=== PATIENT | male | born 1945 | race Caucasian/White ===

== ENCOUNTER 2020-09-08 06:33 | Day surgery (SDC) | payer MEDICARE, SELFPAY ==
[2020-09-05 13:07] VITALS: BMI 30.9
[2020-09-08 06:44] VITALS: BP 160/75; PULSE 66; RESP 15; TEMP 36.2; O2SAT 97; BMI 29.5
[2020-09-08 06:56] LABS: Glucose, Whole Blood 172 mg/dL (60-115)
[2020-09-08] MEDS: Lactated Ringers 1,000 ML 50 ML IV (07:05)
--- NOTE | 2020-09-08 07:17 | HO.ANESPROP2 ---
[facility] Past Medical History Medical History Arthritis Gout HTN (hypertension) Hyperlipidemia Hypertriglyceridemia Psoriasis Type II diabetes mellitus Surgical History Surgical History History of bilateral carpal tunnel release History of nasal surgery History of neck surgery Hx of colonoscopy Social History Social History Are you a primary neurocritical care physician to a significant other at home: No Do you presently have visiting nurse or other home services: No Smoking Status: Former smoker Use of substances other than those prescribed or required for medical reasons: No Advance Directives: No Advance Directives Information Provided: No Advance Directives on File: No Recently lost weight without trying: No Meds Allergies Allergy/AdvReac Type Severity Reaction Status Date / Time lisinopril [LISINOPRIL] Allergy Severe ANGIOEDEMA Verified 09/08/20 07:03 Active Medications: Current Medications Generic Name Dose Route Start Last Admin Trade Name Freq PRN Reason Stop Dose Admin Lactated Ringer's 1,000 mls @ 50 mls/hr 09/07/20 08:15 09/08/20 07:05 Lr IV 50 mls/hr .Q20H ROSA Administration Home Medications Medication Instructions Recorded Confirmed Last Taken Type allopurinol 1 tab PO DAILY 09/05/20 09/05/20 Unknown History aspirin [Aspir-81] 81 mg PO DAILY 09/05/20 09/05/20 Unknown History atenolol 1 tab PO BID 09/05/20 09/08/20 09/08/20 History 50 mg gemfibrozil 1 tab PO BID 09/05/20 09/05/20 Unknown History glipizide 1 tab PO BID 09/05/20 09/05/20 Unknown History metformin 1 tab PO BID 09/05/20 09/05/20 Unknown History multivitamin 1 tab PO DAILY 09/05/20 09/05/20 Unknown History pravastatin 1 tab PO BEDTIME 09/05/20 09/05/20 Unknown History Exam Exam Date and Time: September 08, 2020 0717 Height,Weight and Vital Signs: Height 5 ft 6 in Weight 83.007 kg Last Vital Signs Temp 97.1 F 09/08/20 06:44 Pulse 66 09/08/20 06:44 Resp 15 09/08/20 06:44 BP 160/75 H 09/08/20 06:44 Pulse Ox 97 09/08/20 06:44 Pertinent Lab Results Pertinent Lab Results: Laboratory Tests 09/08/20 06:49 POC Glucose 172 H Airway Mallampati Class: II TM Dist: >3cm Neck ROM: Full Loose/Missing/Broken Teeth: No Heart: RRR Lungs: CTA Assessment and Plan Assessment Anesthesia Assessment: Anesthesia Plan Discussed and Chart Reviewed Final Anesthetic Review NPO: Yes ASA Class: II Final Preanesthetic Review: Meds/Allgs Chart Reviewed, Consent Obtained/Reviewed and Anes Risks/Benef Reviewed Patient Risk: Low Procedure Risk: Low Anesthetic Plan Anesthetic Plan: MAC: Disposition: Standard PACU
--- NOTE | 2020-09-08 07:26 | MHC.SHP ---
Pre-Procedural Eval Section A The patient is an INPATIENT: No Changes since office visit: No Cold of Flu in the past 2 weeks, No New Medical Problems, No Changes in Medication and No Patient answered all questions The History & Physical has been completed within 30 days and I have reviewed it.: Yes Section B Chief Complaint: screening Allergies: Allergies Allergy/AdvReac Type Severity Reaction Status Date / Time lisinopril [LISINOPRIL] Allergy Severe ANGIOEDEMA Verified 09/08/20 07:03 Plan I have reviewed the history and physical and performed a pertinent physical examination on my patient. No changes have occurred unless specified.
[2020-09-08 08:10] VITALS: BP 135/56; PULSE 59; RESP 16; TEMP 36.6; O2SAT 99
--- NOTE | 2020-09-08 08:10 | PM.OP ---
Brief Operative Note Date of Service: 09/08/20 Pre-op diagnosis: screening Post-op diagnosis: same (colon polyp) Procedure: colonsocopy Surgeon: Nicholas Blankenship Estimated blood loss (mL): 2 Pathology: other (polyp ) Condition: stable Disposition: PACU
[2020-09-08 08:25] VITALS: BP 121/66; PULSE 68; RESP 16; O2SAT 96
--- NOTE | 2020-09-08 13:30 | OP_ITS ---
SURGEON: Nicholas Blankenship MD INDICATIONS: Colon cancer screening. PREOPERATIVE DIAGNOSIS: POSTOPERATIVE DIAGNOSIS: PROCEDURE PERFORMED: Colonoscopy to the cecum with biopsy. ESTIMATED BLOOD LOSS: COMPLICATIONS: ANESTHESIA: ASSISTANTS: SPECIMENS: MEDICATIONS: Monitored anesthesia care. DESCRIPTION OF PROCEDURE: History and physical performed. The risks and benefits of the procedure were explained to the patient. Informed consent was obtained. The patient was placed in the left lateral decubitus position. A digital rectal exam was performed and was found to be normal. The Olympus pediatric video colonoscope was introduced into the rectum and advanced to the cecum without difficulty. The cecum was identified by transillumination, palpation, and identification of the ileocecal valve. Examination was performed and the scope was removed. He tolerated the procedure well and was taken to recovery area in stable condition. FINDINGS: The terminal ileum was not examined. The visualized colonic mucosa was normal. The quality of the prep was fair with some retained stool and liquid stool. This was washed and suctioned. There was extensive diverticulosis throughout the colon. At the hepatic flexure, was a less than 5 mm polyp, which was removed with biopsy forceps. Retroflexed examination was normal. IMPRESSION: Colon polyp. RECOMMENDATION: Follow up the biopsy results. MD JAVAD Ramachandran/JORDYN / [id number]
== END 2020-09-08 09:24 | disposition home or self-care (01) ==
PROVIDERS: PCP Internal Medicine; Visit Provider Internal Medicine Gastroenterology
PROC: 0DJD8ZZ Inspection of Lower Intestinal Tract, Via Natural or Artificial Opening Endoscopic (ICD-10-PCS; CPT 45378; principal; 2020-09-08 07:30)
DX: Z12.11 Encounter for screening for malignant neoplasm of colon (principal); D12.3 Benign neoplasm of transverse colon; K57.30 Diverticulosis of large intestine without perforation or abscess without bleeding; I10 Essential (primary) hypertension; E11.9 Type 2 diabetes mellitus without complications; Z79.84 Long term (current) use of oral hypoglycemic drugs; Z79.899 Other long term (current) drug therapy; Z79.82 Long term (current) use of aspirin
CPT/HCPCS: 45380; 82947; 88305

== ENCOUNTER 2020-09-11 09:01 | Outpatient (REF) | payer MEDICARE, SELFPAY ==
[2020-09-11 11:19] LABS: Glucose Urine UA NEG (NEG); Leukocyte Esterase Urine NEG (NEG); Nitrite Urine NEG (NEG); PH 5.5 (5.0-8.0); Urine Blood 1+ (NEG); Urine Ketones NEG (NEG); Urine Protein 1+ MG/DL (NEG-TRACE)
[2020-09-11 11:20] LABS: Appearance Urine CLEAR; Color Urine YELLOW
[2020-09-11 11:23] LABS: MANUAL DIFF FLAG NO
[2020-09-11 11:36] LABS: Estimated Average Glucose 134 mg/dL; Hemoglobin A1c % 6.3 %
[2020-09-11 11:46] LABS: Basophils Percent Auto 0.2 % (0-2); Eosinophils Absolute Auto 0.1 X10*3/uL (0.0-0.4); Eosinophils Percent Auto 1.2 % (0-4); Imm Gran Abs Auto 0.04 X10*3/uL (0.00-0.03); Imm Gran Pct Auto 0.8 % (0.0-0.4); Lymphocytes Percent Auto 19.6 % (20-40); Mean Corpuscular HGB Conc 33.3 g/dl (31.0-36.0); Mean Corpuscular Hemoglobin 30.6 pg (27.0-33.0); Mean Corpuscular Volume 91.7 fL (80-98); Mean Platelet Volume 10.6 fL (9.4-12.4); Monocytes Absolute Auto 0.5 X10*3/uL (0.1-1.2); Monocytes Percent Auto 10.4 % (2-11); Neutrophils Absolute Auto 3.3 X10*3/uL (2.0-8.3); Neutrophils Percent Auto 67.8 % (45-73); Platelet Count 168 X10*3/uL (160-400); Red Blood Count 4.58 X10*6/uL (4.60-5.80); Red Cell Distribution Width 12.9 % (11.0-16.0); White Blood Count 4.9 X10*3/uL (4.8-10.8)
[2020-09-11 11:50] LABS: Creatinine Urine 49.03 mg/dL; Microalbum/Creatinine Ratio Ur 583.3 ug/mg cr
[2020-09-11 11:53] LABS: RBC Urine 0-2 /HPF (0); WBC Urine 0 /HPF (0-4)
[2020-09-11 11:54] LABS: Alanine Aminotransferase 22 U/L (0-40); Albumin Level 4.8 g/dL (3.5-5.0); Alkaline Phosphatase 57 U/L (39-117); Anion Gap 16 (12-20); Aspartate Amino Transferase 20 U/L (5-37); Bilirubin Total 0.9 mg/dL (0.0-1.0); Blood Urea Nitrogen 16 mg/dL (9-16); Calcium 9.4 mg/dL (8.4-10.2); Carbon Dioxide 25 mmol/L (22-29); Chloride 103 mmol/L (96-108); Cholesterol 156 mg/dL; Estimated Glomerular Filt Rate > 60; Glucose Fasting 172 mg/dL (60-99); HDL Cholesterol 31 mg/dL; LDL Cholesterol Calculated 74 mg/dl; Potassium 4.4 mmol/L (3.3-5.1); Sodium 140 mmol/L (135-145); Total Protein 7.3 g/dL (6.5-8.0); Triglycerides 257 mg/dL
[2020-09-11 12:19] LABS: Prostate Specific Antigen Scr 0.39 ng/mL (<0.05-4.0)
== END 2020-09-11 09:02 | disposition home or self-care (01) ==
LOC: HO.HMGCLDS 09:01
PROVIDERS: PCP Internal Medicine; Visit Provider Internal Medicine
DX: Z12.5 Encounter for screening for malignant neoplasm of prostate (principal); E78.5 Hyperlipidemia, unspecified; E11.9 Type 2 diabetes mellitus without complications; I10 Essential (primary) hypertension; L40.9 Psoriasis, unspecified; Z86.010 Personal history of colon polyps
CPT/HCPCS: 36415; 80053; 80061; 81001; 82043; 83036; 84153; 85025

== ENCOUNTER 2020-12-19 06:11 | Outpatient (REF) | payer MEDICARE, SELFPAY ==
[2020-12-19 11:42] LABS: Alanine Aminotransferase 23 U/L (0-40); Albumin Level 4.8 g/dL (3.5-5.0); Alkaline Phosphatase 47 U/L (39-117); Anion Gap 15 (12-20); Aspartate Amino Transferase 28 U/L (5-37); Bilirubin Total 0.7 mg/dL (0.0-1.0); Blood Urea Nitrogen 20 mg/dL (9-16); Calcium 9.7 mg/dL (8.4-10.2); Carbon Dioxide 27 mmol/L (22-29); Chloride 103 mmol/L (96-108); Estimated Glomerular Filt Rate > 60; Glucose Random 127 mg/dL (60-115); Potassium 4.8 mmol/L (3.3-5.1); Sodium 140 mmol/L (135-145); Total Protein 7.4 g/dL (6.5-8.0); Uric Acid 7.3 mg/dL (3.4-7.0)
[2020-12-19 12:01] LABS: Estimated Average Glucose 137 mg/dL; Hemoglobin A1c % 6.4 %
[2020-12-19 12:12] LABS: Creatinine Urine 65.64 mg/dL
== END 2020-12-19 06:12 | disposition home or self-care (01) ==
LOC: HO.HMGCLDS 06:11
PROVIDERS: PCP Internal Medicine; Visit Provider Internal Medicine
DX: I10 Essential (primary) hypertension (principal); E11.9 Type 2 diabetes mellitus without complications; M10.9 Gout, unspecified
CPT/HCPCS: 36415; 80053; 82043; 83036; 84550

== ENCOUNTER 2021-03-28 06:05 | Outpatient (REF) | payer MEDICARE, SELFPAY ==
[2021-03-28 11:50] LABS: Creatinine Urine 54.21 mg/dL; Estimated Average Glucose 128 mg/dL; Hemoglobin A1c % 6.1 %
[2021-03-28 11:52] LABS: Microalbum/Creatinine Ratio Ur 77.4 ug/mg cr
[2021-03-28 12:01] LABS: Alanine Aminotransferase 24 U/L (0-40); Albumin Level 4.7 g/dL (3.5-5.0); Alkaline Phosphatase 50 U/L (39-117); Anion Gap 15 (12-20); Aspartate Amino Transferase 25 U/L (5-37); Bilirubin Total 1.1 mg/dL (0.0-1.0); Blood Urea Nitrogen 16 mg/dL (9-16); Calcium 9.5 mg/dL (8.4-10.2); Carbon Dioxide 25 mmol/L (22-29); Chloride 104 mmol/L (96-108); Cholesterol 146 mg/dL; Estimated Glomerular Filt Rate > 60; Glucose Fasting 121 mg/dL (60-99); HDL Cholesterol 29 mg/dL; LDL Cholesterol Calculated 69 mg/dl; Potassium 4.1 mmol/L (3.3-5.1); Sodium 140 mmol/L (135-145); Total Protein 7.3 g/dL (6.5-8.0); Triglycerides 244 mg/dL
== END 2021-03-28 06:06 | disposition home or self-care (01) ==
LOC: HO.HMGCLDS 06:05
PROVIDERS: PCP Internal Medicine; Visit Provider Internal Medicine
DX: E11.9 Type 2 diabetes mellitus without complications (principal); I10 Essential (primary) hypertension; E78.5 Hyperlipidemia, unspecified
CPT/HCPCS: 36415; 80053; 80061; 82043; 83036

== ENCOUNTER 2021-07-24 06:15 | Outpatient (REF) | payer MEDICARE, SELFPAY ==
[2021-07-24 11:27] LABS: MANUAL DIFF FLAG NO
[2021-07-24 11:41] LABS: Basophils Percent Auto 0.2 % (0-2); Eosinophils Absolute Auto 0.2 X10*3/uL (0.0-0.4); Eosinophils Percent Auto 2.8 % (0-4); Hematocrit 40.9 % (42.0-52.0); Hemoglobin 13.1 g/dl (14.0-18.0); Imm Gran Abs Auto 0.04 X10*3/uL (0.00-0.03); Imm Gran Pct Auto 0.7 % (0.0-0.4); Lymphocytes Absolute Auto 1.2 X10*3/uL (1.2-4.9); Lymphocytes Percent Auto 20.5 % (20-40); Mean Corpuscular Hemoglobin 29.8 pg (27.0-33.0); Mean Corpuscular Volume 93.2 fL (80.0-98.0); Mean Platelet Volume 10.2 fL (9.4-12.4); Monocytes Absolute Auto 0.6 X10*3/uL (0.1-1.2); Monocytes Percent Auto 11.2 % (2-11); Neutrophils Absolute Auto 3.7 x10*3/uL (2.0-8.3); Neutrophils Percent Auto 64.6 % (45-73); Platelet Count 180 X10*3/uL (160-400); Red Blood Count 4.39 X10*6/uL (4.60-5.80); Red Cell Distribution Width 12.8 % (11.0-16.0); White Blood Count 5.7 X10*3/uL (4.8-10.8)
[2021-07-24 11:45] LABS: Estimated Average Glucose 123 mg/dL; Hemoglobin A1C 145.4799 umol/L; Hemoglobin A1c % 5.9 %
[2021-07-24 12:18] LABS: Alanine Aminotransferase 19 U/L (0-40); Albumin Level 4.7 g/dL (3.5-5.0); Alkaline Phosphatase 48 U/L (39-117); Anion Gap 13 (12-20); Aspartate Amino Transferase 24 U/L (5-37); Bilirubin Total 0.8 mg/dL (0.0-1.0); Blood Urea Nitrogen 22 mg/dL (9-16); Calcium 9.8 mg/dL (8.4-10.2); Carbon Dioxide 29 mmol/L (22-29); Chloride 103 mmol/L (96-108); Estimated Glomerular Filt Rate > 60; Glucose Random 117 mg/dL (60-115); Potassium 4.3 mmol/L (3.3-5.1); Sodium 141 mmol/L (135-145); Total Protein 7.4 g/dL (6.5-8.0)
[2021-07-24 12:32] LABS: Creatinine Urine 70.64 mg/dL
== END 2021-07-24 06:16 | disposition home or self-care (01) ==
LOC: HO.HMGCLDS 06:15
PROVIDERS: Visit Provider Internal Medicine
DX: E11.9 Type 2 diabetes mellitus without complications (principal); I10 Essential (primary) hypertension; I73.9 Peripheral vascular disease, unspecified; E78.5 Hyperlipidemia, unspecified
CPT/HCPCS: 36415; 80053; 82043; 83036; 85025

== ENCOUNTER 2021-11-09 10:10 | Outpatient (REF) | payer MEDICARE, SELFPAY ==
[2021-11-09 10:58] LABS: MANUAL DIFF FLAG NO
[2021-11-09 11:03] LABS: Basophils Percent Auto 0.2 % (0-2); Eosinophils Absolute Auto 0.1 X10*3/uL (0.0-0.4); Eosinophils Percent Auto 1.9 % (0-4); Hematocrit 41.1 % (42.0-52.0); Hemoglobin 13.7 g/dl (14.0-18.0); Imm Gran Abs Auto 0.04 X10*3/uL (0.00-0.03); Imm Gran Pct Auto 0.8 % (0.0-0.4); Lymphocytes Absolute Auto 0.9 X10*3/uL (1.2-4.9); Lymphocytes Percent Auto 18.9 % (20-40); Mean Corpuscular HGB Conc 33.3 g/dl (31.0-36.0); Mean Corpuscular Hemoglobin 30.7 pg (27.0-33.0); Mean Corpuscular Volume 92.2 fL (80.0-98.0); Mean Platelet Volume 9.8 fL (9.4-12.4); Monocytes Absolute Auto 0.5 X10*3/uL (0.1-1.2); Monocytes Percent Auto 9.9 % (2-11); Neutrophils Absolute Auto 3.2 x10*3/uL (2.0-8.3); Neutrophils Percent Auto 68.3 % (45-73); Platelet Count 177 X10*3/uL (160-400); Red Blood Count 4.46 X10*6/uL (4.60-5.80); White Blood Count 4.8 X10*3/uL (4.8-10.8)
[2021-11-09 11:17] LABS: Estimated Average Glucose 146 mg/dL; Hemoglobin A1c % 6.7 %
[2021-11-09 11:36] LABS: Alanine Aminotransferase 27 U/L (0-40); Albumin Level 4.9 g/dL (3.5-5.0); Alkaline Phosphatase 53 U/L (39-117); Anion Gap 16 (12-20); Aspartate Amino Transferase 28 U/L (5-37); Bilirubin Total 1.1 mg/dL (0.0-1.0); Blood Urea Nitrogen 14 mg/dL (9-16); Carbon Dioxide 26 mmol/L (22-29); Chloride 102 mmol/L (96-108); Estimated Glomerular Filt Rate > 60; Glucose Random 158 mg/dL (60-115); Iron 119 mcg/dL (45-160); Percent Iron Saturation 34 % (15-50); Potassium 4.9 mmol/L (3.3-5.1); Sodium 139 mmol/L (135-145); Total Iron Binding Capacity 352 mcg/dL (228-428); Total Protein 7.6 g/dL (6.5-8.0); Unsaturated Iron Binding 233 ug/dL
[2021-11-09 14:19] LABS: Creatinine Urine 96.44 mg/dL; Microalbum/Creatinine Ratio Ur 120.2 ug/mg cr
== END 2021-11-09 10:11 | disposition home or self-care (01) ==
LOC: HO.10HDL 10:10
PROVIDERS: Visit Provider Internal Medicine
DX: E11.9 Type 2 diabetes mellitus without complications (principal); D64.9 Anemia, unspecified; I10 Essential (primary) hypertension; M10.9 Gout, unspecified
CPT/HCPCS: 36415; 80053; 82043; 83036; 83540; 84550; 85025

== ENCOUNTER 2022-02-27 06:42 | Outpatient (REF) | payer MEDICARE, SELFPAY ==
[2022-02-27 11:17] LABS: MANUAL DIFF FLAG NO
[2022-02-27 11:21] LABS: Basophils Percent Auto 0.4 % (0-2); Eosinophils Absolute Auto 0.1 X10*3/uL (0.0-0.4); Eosinophils Percent Auto 2.8 % (0-4); Hematocrit 40.5 % (42.0-52.0); Hemoglobin 13.3 g/dl (14.0-18.0); Imm Gran Abs Auto 0.04 X10*3/uL (0.00-0.03); Imm Gran Pct Auto 0.9 % (0.0-0.4); Mean Corpuscular HGB Conc 32.8 g/dl (31.0-36.0); Mean Corpuscular Hemoglobin 30.4 pg (27.0-33.0); Mean Corpuscular Volume 92.7 fL (80.0-98.0); Mean Platelet Volume 10.4 fL (9.4-12.4); Monocytes Absolute Auto 0.6 X10*3/uL (0.1-1.2); Monocytes Percent Auto 11.9 % (2-11); Neutrophils Absolute Auto 2.9 x10*3/uL (2.0-8.3); Platelet Count 166 X10*3/uL (160-400); Red Blood Count 4.37 X10*6/uL (4.60-5.80); Red Cell Distribution Width 12.6 % (11.0-16.0); White Blood Count 4.6 X10*3/uL (4.8-10.8)
[2022-02-27 11:32] LABS: Estimated Average Glucose 143 mg/dL; Hemoglobin A1c % 6.6 %
[2022-02-27 11:55] LABS: Alanine Aminotransferase 31 U/L (0-40); Albumin Level 4.9 g/dL (3.5-5.0); Alkaline Phosphatase 54 U/L (39-117); Anion Gap 18 (12-20); Aspartate Amino Transferase 30 U/L (5-37); Bilirubin Total 0.6 mg/dL (0.0-1.0); Blood Urea Nitrogen 19 mg/dL (9-16); Calcium 9.6 mg/dL (8.4-10.2); Carbon Dioxide 27 mmol/L (22-29); Chloride 102 mmol/L (96-108); Cholesterol 138 mg/dL; Estimated Glomerular Filt Rate > 60; Glucose Fasting 178 mg/dL (60-99); HDL Cholesterol 28 mg/dL; LDL Cholesterol Calculated 60 mg/dl; Potassium 4.7 mmol/L (3.3-5.1); Sodium 142 mmol/L (135-145); Total Protein 7.4 g/dL (6.5-8.0); Triglycerides 253 mg/dL
[2022-02-27 12:02] LABS: Prostate Specific Antigen 0.29 ng/mL (<0.05-4.0)
[2022-02-27 12:11] LABS: Creatinine Urine 99.92 mg/dL; Microalbum/Creatinine Ratio Ur 158.1 ug/mg cr
== END 2022-02-27 06:43 | disposition home or self-care (01) ==
LOC: HO.HMGCLDS 06:42
PROVIDERS: PCP Internal Medicine; Visit Provider Internal Medicine
DX: E11.9 Type 2 diabetes mellitus without complications (principal); I10 Essential (primary) hypertension; E78.5 Hyperlipidemia, unspecified; N40.0 Benign prostatic hyperplasia without lower urinary tract symptoms; Z12.5 Encounter for screening for malignant neoplasm of prostate
CPT/HCPCS: 36415; 80053; 80061; 82043; 83036; 84153; 85025

== ENCOUNTER 2022-06-05 07:20 | Outpatient (REF) | payer MEDICARE, SELFPAY ==
--- NOTE | ~2022-06-05 | CT_ITS ---
EXAMINATION: CT HEAD WITHOUT CONTRAST CLINICAL INFORMATION: Right-sided tinnitus. COMPARISON: MRI brain 09/07/2011, CT head 08/27/2011 TECHNIQUE: Contiguous axial imaging was performed from the skull base to vertex without intravenous administration of contrast. This CT examination was performed using dose optimization techniques as appropriate, variously including the following: *Automated exposure control *Adjustment of mA and/or kV according to patient size (this includes techniques or standardized protocols for targeted exams where dose is matched to indication/reason for exam; i.e. extremities or head) *Use of iterative reconstruction technique DLP: 871 mGy-cm FINDINGS: Mild-moderate diffuse commensurate prominence of ventricles and sulci is noted. No intracranial hemorrhage, tumors or acute infarcts are visualized. Scrutiny of the internal auditory canals demonstrates no gross remodeling of the internal auditory canals or gross lesions within the cerebellar pontine angles. The orbits and globes are normal in appearance. No significant opacification of the visualized paranasal sinuses, mastoid air cells and middle ear cavities. Grossly normal appearance of the left and right temporal bone labyrinths. Mild segmental calcific atherosclerosis of the cavernous portions of the internal carotid arteries. CT/CT head/brain wo IV con IMPRESSION: *No specific findings to correlate with a history of right-sided tinnitus. *Mild diffuse parenchymal volume loss of the brain. *Mild segmental calcific atherosclerosis of the cavernous portions of the left and right internal carotid arteries.
== END 2022-06-05 07:21 | disposition home or self-care (01) ==
LOC: HO.CT 07:20
PROVIDERS: PCP Internal Medicine; Visit Provider Internal Medicine
DX: H93.11 Tinnitus, right ear (principal)
CPT/HCPCS: 70450

== ENCOUNTER 2022-08-30 06:28 | Outpatient (REF) | payer MEDICARE, SELFPAY ==
[2022-08-30 11:32] LABS: MANUAL DIFF FLAG NO
[2022-08-30 11:57] LABS: Basophils Percent Auto 0.2 % (0-2); Eosinophils Absolute Auto 0.1 X10*3/uL (0.0-0.4); Hematocrit 39.4 % (42.0-52.0); Hemoglobin 12.7 g/dl (14.0-18.0); Imm Gran Abs Auto 0.05 X10*3/uL (0.00-0.03); Imm Gran Pct Auto 1.2 % (0.0-0.4); Lymphocytes Absolute Auto 1.1 X10*3/uL (1.2-4.9); Lymphocytes Percent Auto 25.6 % (20-40); Mean Corpuscular HGB Conc 32.2 g/dl (31.0-36.0); Mean Corpuscular Hemoglobin 29.9 pg (27.0-33.0); Mean Corpuscular Volume 92.7 fL (80.0-98.0); Mean Platelet Volume 10.2 fL (9.4-12.4); Monocytes Absolute Auto 0.5 X10*3/uL (0.1-1.2); Monocytes Percent Auto 12.7 % (2-11); Neutrophils Absolute Auto 2.4 x10*3/uL (2.0-8.3); Neutrophils Percent Auto 58.3 % (45-73); Platelet Count 170 X10*3/uL (160-400); Red Blood Count 4.25 X10*6/uL (4.60-5.80); White Blood Count 4.1 X10*3/uL (4.8-10.8)
[2022-08-30 12:31] LABS: Estimated Average Glucose 151 mg/dL; Hemoglobin A1c % 6.9 %
[2022-08-30 12:42] LABS: Alanine Aminotransferase 21 U/L (0-40); Albumin Level 4.6 g/dL (3.5-5.0); Alkaline Phosphatase 49 U/L (39-117); Anion Gap 17 (12-20); Aspartate Amino Transferase 26 U/L (5-37); Bilirubin Total 0.8 mg/dL (0.0-1.0); Blood Urea Nitrogen 21 mg/dL (9-16); Calcium 9.5 mg/dL (8.4-10.2); Carbon Dioxide 26 mmol/L (22-29); Chloride 104 mmol/L (96-108); Cholesterol 149 mg/dL; Estimated Glomerular Filt Rate > 60; Glucose Fasting 170 mg/dL (60-99); HDL Cholesterol 27 mg/dL; LDL Cholesterol Calculated 68 mg/dl; Microalbum/Creatinine Ratio Ur 152.2 ug/mg cr; Potassium 4.6 mmol/L (3.3-5.1); Prostate Specific Antigen 0.36 ng/mL (<0.05-4.0); Sodium 142 mmol/L (135-145); Triglycerides 270 mg/dL; Uric Acid 6.9 mg/dL (3.4-7.0)
== END 2022-08-30 06:29 | disposition home or self-care (01) ==
LOC: HO.HMGCLDS 06:28
PROVIDERS: PCP Internal Medicine; Visit Provider Internal Medicine
DX: E11.9 Type 2 diabetes mellitus without complications (principal); I10 Essential (primary) hypertension; M10.9 Gout, unspecified; E78.00 Pure hypercholesterolemia, unspecified; L40.9 Psoriasis, unspecified; Z12.5 Encounter for screening for malignant neoplasm of prostate
CPT/HCPCS: 36415; 80053; 80061; 82043; 83036; 84153; 84550; 85025

== ENCOUNTER 2023-01-13 12:39 | Outpatient (REF) | payer MEDICARE, SELFPAY ==
[2023-01-13 13:11] LABS: MANUAL DIFF FLAG NO
[2023-01-13 13:20] LABS: Basophils Percent Auto 0.5 % (0-2); Eosinophils Absolute Auto 0.2 X10*3/uL (0.0-0.4); Eosinophils Percent Auto 2.3 % (0-4); Hematocrit 41.3 % (42.0-52.0); Hemoglobin 13.3 g/dl (14.0-18.0); Imm Gran Pct Auto 1.2 % (0.0-0.4); Lymphocytes Absolute Auto 1.3 X10*3/uL (1.2-4.9); Lymphocytes Percent Auto 16.3 % (20-40); Mean Corpuscular HGB Conc 32.2 g/dl (31.0-36.0); Mean Corpuscular Volume 93.2 fL (80.0-98.0); Mean Platelet Volume 9.6 fL (9.4-12.4); Monocytes Absolute Auto 0.8 X10*3/uL (0.1-1.2); Monocytes Percent Auto 9.9 % (2-11); Neutrophils Absolute Auto 5.7 x10*3/uL (2.0-8.3); Neutrophils Percent Auto 69.8 % (45-73); Platelet Count 215 X10*3/uL (160-400); Red Blood Count 4.43 X10*6/uL (4.60-5.80); Red Cell Distribution Width 13.2 % (11.0-16.0); White Blood Count 8.1 X10*3/uL (4.8-10.8)
[2023-01-13 13:30] LABS: Estimated Average Glucose 137 mg/dL; Hemoglobin A1c % 6.4 % (<6.0)
[2023-01-13 13:34] LABS: Alanine Aminotransferase 23 U/L (0-40); Albumin Level 4.6 g/dL (3.5-5.0); Alkaline Phosphatase 43 U/L (39-117); Anion Gap 12 (12-20); Aspartate Amino Transferase 31 U/L (5-37); Bilirubin Total 0.6 mg/dL (0.0-1.0); Blood Urea Nitrogen 17 mg/dL (9-16); Calcium 10.4 mg/dL (8.4-10.2); Carbon Dioxide 29 mmol/L (22-29); Chloride 104 mmol/L (96-108); Estimated Glomerular Filt Rate > 60; Glucose Random 97 mg/dL (60-115); Iron 76 mcg/dL (45-160); Percent Iron Saturation 27 % (15-50); Potassium 4.6 mmol/L (3.3-5.1); Sodium 140 mmol/L (135-145); Total Iron Binding Capacity 286 mcg/dL (228-428); Total Protein 8.1 g/dL (6.5-8.0); Unsaturated Iron Binding 210 ug/dL
== END 2023-01-13 12:40 | disposition home or self-care (01) ==
LOC: HO.10HDL 12:39
PROVIDERS: Visit Provider Internal Medicine
DX: E11.9 Type 2 diabetes mellitus without complications (principal); D64.9 Anemia, unspecified; I10 Essential (primary) hypertension
CPT/HCPCS: 36415; 80053; 83036; 83540; 85025

== ENCOUNTER 2023-03-31 06:42 | Outpatient (REF) | payer MEDICARE, SELFPAY ==
[2023-03-31 11:13] LABS: MANUAL DIFF FLAG NO
[2023-03-31 11:34] LABS: Basophils Percent Auto 0.2 % (0-2); Eosinophils Absolute Auto 0.2 X10*3/uL (0.0-0.4); Eosinophils Percent Auto 2.9 % (0-4); Hematocrit 40.9 % (42.0-52.0); Hemoglobin 13.1 g/dl (14.0-18.0); Imm Gran Abs Auto 0.04 X10*3/uL (0.00-0.03); Imm Gran Pct Auto 0.8 % (0.0-0.4); Lymphocytes Absolute Auto 1.2 X10*3/uL (1.2-4.9); Lymphocytes Percent Auto 22.4 % (20-40); Mean Corpuscular Hemoglobin 30.4 pg (27.0-33.0); Mean Corpuscular Volume 94.9 fL (80.0-98.0); Mean Platelet Volume 10.6 fL (9.4-12.4); Monocytes Absolute Auto 0.6 X10*3/uL (0.1-1.2); Monocytes Percent Auto 12.3 % (2-11); Neutrophils Absolute Auto 3.2 x10*3/uL (2.0-8.3); Neutrophils Percent Auto 61.4 % (45-73); Platelet Count 177 X10*3/uL (160-400); Red Blood Count 4.31 X10*6/uL (4.60-5.80); Red Cell Distribution Width 13.3 % (11.0-16.0); White Blood Count 5.2 X10*3/uL (4.8-10.8)
[2023-03-31 11:39] LABS: Cholesterol 135 mg/dL (<200); HDL Cholesterol 26 mg/dL (>40); LDL Cholesterol Calculated 58 mg/dL (<100); Triglycerides 256 mg/dL (<150)
== END 2023-03-31 06:43 | disposition home or self-care (01) ==
LOC: HO.HMGCLDS 06:42
PROVIDERS: PCP Internal Medicine; Visit Provider Internal Medicine
DX: E78.5 Hyperlipidemia, unspecified (principal); D64.9 Anemia, unspecified
CPT/HCPCS: 36415; 80061; 85025

== ENCOUNTER 2023-07-23 07:14 | Outpatient (REF) | payer MEDICARE, SELFPAY ==
[2023-07-23 11:11] LABS: MANUAL DIFF FLAG NO
[2023-07-23 11:13] LABS: Basophils Percent Auto 0.4 % (0-2); Eosinophils Absolute Auto 0.1 X10*3/uL (0.0-0.4); Eosinophils Percent Auto 2.5 % (0-4); Hematocrit 39.9 % (42.0-52.0); Hemoglobin 13.1 g/dl (14.0-18.0); Imm Gran Abs Auto 0.07 X10*3/uL (0.00-0.03); Imm Gran Pct Auto 1.3 % (0.0-0.4); Lymphocytes Absolute Auto 1.2 X10*3/uL (1.2-4.9); Lymphocytes Percent Auto 22.3 % (20-40); Mean Corpuscular HGB Conc 32.8 g/dl (31.0-36.0); Mean Corpuscular Hemoglobin 30.6 pg (27.0-33.0); Mean Corpuscular Volume 93.2 fL (80.0-98.0); Mean Platelet Volume 10.1 fL (9.4-12.4); Monocytes Absolute Auto 0.8 X10*3/uL (0.1-1.2); Monocytes Percent Auto 14.2 % (2-11); Neutrophils Absolute Auto 3.1 x10*3/uL (2.0-8.3); Neutrophils Percent Auto 59.3 % (45-73); Platelet Count 178 X10*3/uL (160-400); Red Blood Count 4.28 X10*6/uL (4.60-5.80); Red Cell Distribution Width 12.8 % (11.0-16.0); White Blood Count 5.3 X10*3/uL (4.8-10.8)
[2023-07-23 11:24] LABS: Estimated Average Glucose 123 mg/dL; Hemoglobin A1c % 5.9 % (<6.0)
[2023-07-23 13:02] LABS: Alanine Aminotransferase 22 U/L (0-40); Albumin Level 4.5 g/dL (3.5-5.0); Alkaline Phosphatase 39 U/L (39-117); Anion Gap 11 (12-20); Aspartate Amino Transferase 21 U/L (5-37); Bilirubin Total 0.5 mg/dL (0.0-1.0); Blood Urea Nitrogen 25 mg/dL (9-16); Calcium 9.8 mg/dL (8.4-10.2); Carbon Dioxide 28 mmol/L (22-29); Chloride 104 mmol/L (96-108); Cholesterol 151 mg/dL (<200); Estimated Glomerular Filt Rate > 60; Glucose Fasting 130 mg/dL (60-99); HDL Cholesterol 25 mg/dL (>40); LDL Cholesterol Calculated 64 mg/dL (<100); Potassium 4.7 mmol/L (3.3-5.1); Sodium 138 mmol/L (135-145); Total Protein 7.6 g/dL (6.5-8.0); Triglycerides 310 mg/dL (<150)
[2023-07-23 13:03] LABS: Microalbum/Creatinine Ratio Ur 63.7 ug/mg cr (<30)
== END 2023-07-23 07:15 | disposition home or self-care (01) ==
LOC: HO.HMGCLDS 07:14
PROVIDERS: PCP Internal Medicine; Visit Provider Internal Medicine
DX: E11.9 Type 2 diabetes mellitus without complications (principal); I10 Essential (primary) hypertension; E78.00 Pure hypercholesterolemia, unspecified
CPT/HCPCS: 36415; 80053; 80061; 82043; 82570; 83036; 85025

== ENCOUNTER 2023-12-15 07:19 | Outpatient (REF) | payer MEDICARE, SELFPAY ==
[2023-12-15 10:35] LABS: Estimated Average Glucose 126 mg/dL
[2023-12-15 10:41] LABS: Alanine Aminotransferase 24 U/L (0-40); Albumin Level 4.7 g/dL (3.5-5.0); Alkaline Phosphatase 29 U/L (39-117); Anion Gap 13 (12-20); Aspartate Amino Transferase 24 U/L (5-37); Bilirubin Total 0.5 mg/dL (0.0-1.0); Blood Urea Nitrogen 23 mg/dL (9-16); Calcium 9.9 mg/dL (8.4-10.2); Carbon Dioxide 27 mmol/L (22-29); Chloride 104 mmol/L (96-108); Cholesterol 155 mg/dL (<200); Estimated Glomerular Filt Rate 58; Glucose Fasting 110 mg/dL (60-99); HDL Cholesterol 27 mg/dL (>40); LDL Cholesterol Calculated 63 mg/dL (<100); Potassium 4.3 mmol/L (3.3-5.1); Sodium 140 mmol/L (135-145); Total Protein 7.6 g/dL (6.5-8.0); Triglycerides 327 mg/dL (<150)
== END 2023-12-15 07:20 | disposition home or self-care (01) ==
LOC: HO.HMGCLDS 07:19
PROVIDERS: PCP Internal Medicine; Visit Provider Internal Medicine
DX: E11.9 Type 2 diabetes mellitus without complications (principal); I10 Essential (primary) hypertension; I48.0 Paroxysmal atrial fibrillation; E78.5 Hyperlipidemia, unspecified
CPT/HCPCS: 36415; 80053; 80061; 83036

== ENCOUNTER 2024-04-09 10:06 | Outpatient (REF) | payer MEDICARE, SELFPAY ==
[2024-04-09 13:05] LABS: MANUAL DIFF FLAG NO
[2024-04-09 13:18] LABS: Basophils Percent Auto 0.3 % (0-2); Eosinophils Absolute Auto 0.2 X10*3/uL (0.0-0.4); Eosinophils Percent Auto 2.9 % (0-4); Hematocrit 39.4 % (42.0-52.0); Imm Gran Abs Auto 0.06 X10*3/uL (0.00-0.03); Lymphocytes Absolute Auto 0.9 X10*3/uL (1.2-4.9); Lymphocytes Percent Auto 14.9 % (20-40); Mean Corpuscular Hemoglobin 30.9 pg (27.0-33.0); Mean Corpuscular Volume 93.6 fL (80.0-98.0); Mean Platelet Volume 10.3 fL (9.4-12.4); Monocytes Absolute Auto 0.9 X10*3/uL (0.1-1.2); Neutrophils Absolute Auto 4.2 x10*3/uL (2.0-8.3); Neutrophils Percent Auto 66.9 % (45-73); Platelet Count 197 X10*3/uL (160-400); Red Blood Count 4.21 X10*6/uL (4.60-5.80); Red Cell Distribution Width 12.9 % (11.0-16.0); White Blood Count 6.3 X10*3/uL (4.8-10.8)
[2024-04-09 13:47] LABS: Alanine Aminotransferase 26 U/L (0-40); Albumin Level 4.7 g/dL (3.5-5.0); Anion Gap 15 (12-20); Aspartate Amino Transferase 33 U/L (5-37); Bilirubin Total 0.7 mg/dL (0.0-1.0); Blood Urea Nitrogen 19 mg/dL (9-16); Calcium 10.1 mg/dL (8.4-10.2); Carbon Dioxide 26 mmol/L (22-29); Chloride 102 mmol/L (96-108); Cholesterol 150 mg/dL (<200); Estimated Glomerular Filt Rate > 60; Glucose Fasting 132 mg/dL (60-99); HDL Cholesterol 25 mg/dL (>40); LDL Cholesterol Calculated 63 mg/dL (<100); Potassium 4.7 mmol/L (3.3-5.1); Sodium 138 mmol/L (135-145); Total Protein 7.5 g/dL (6.5-8.0); Triglycerides 314 mg/dL (<150)
[2024-04-09 14:20] LABS: Alkaline Phosphatase 35 U/L (39-117)
== END 2024-04-09 10:07 | disposition home or self-care (01) ==
LOC: HO.HMGCLDS 10:06
PROVIDERS: PCP Internal Medicine; Visit Provider Internal Medicine
DX: E78.5 Hyperlipidemia, unspecified (principal); I10 Essential (primary) hypertension
CPT/HCPCS: 36415; 80053; 80061; 85025

== ENCOUNTER 2024-08-23 09:24 | Outpatient (AMB) | payer MEDICARE, SELFPAY ==
--- NOTE | 2024-08-23 09:27 | A.OFFPC_ITS ---
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 Accompanied by: Self / Same As Patient Allergies lisinopril [LISINOPRIL] Allergy (Severe, Verified 08/23/24 09:29) ANGIOEDEMA Tobacco use date assessed: 08/23/24 Fall risk assessment: No Falls in past year Dental Screening Dental Screen Date: 08/23/24 Did you have a dental visit in the last 12 months?: Yes Did you have a dental problem in the last 6 months where you did not have access to dental care?: No [facility] Medical History Psoriasis Arthritis Hyperlipidemia HTN (hypertension) Gout Hypertriglyceridemia Type II diabetes mellitus Surgical History History of neck surgery History of nasal surgery History of bilateral carpal tunnel release Hx of colonoscopy Family History (Updated 08/23/24 @ 09:40 by Rebeca Beal CMA) Mother Cancer Father No problems noted. Social History Housing: House Are you a primary animal caretaker to a significant other at home: No Do you presently have visiting nurse or other home services: No Patient Tobacco Use Status: Former Tobacco user e-Cigarette/Vaping Use: Former Use service: No Current occupational status: retired Cognitive needs: No Hearing needs: No Vision needs: Yes (reading glasses) Questionnaire PHQ-9 Over the last 2 weeks, how often have you been bothered by any of the following problems? 1. Little interest or pleasure in doing things: not at all 2. Feeling down, depressed, or hopeless: not at all 3. Trouble falling or staying asleep, or sleeping too much: not at all 4. Feeling tired or having little energy: not at all 5. Poor appetite or overeating: not at all 6. Feeling bad about yourself - or that you are a failure or have let yourself or your family down: not at all 7. Trouble concentrating on things, such as reading the newspaper or watching television: not at all 8. Moving or speaking so slowly that other people could have noticed. Or the opposite - being so fidgety or restless that you have been moving around a lot more than usual: not at all 9. Thoughts that you would be better off or of hurting yourself in some way: not at all Total score: 0 Depression Screening Interpretation: Negative Depression Screening Done: Yes Source: Developed by Drs. Spencer Tirado, Briana Benjamin, Dre Del Valle and colleagues, with an educational emy from [email or web address]. Thrive Questionnaire Date Thrive assessed: 08/23/24 I am a: Patient Within the past 12 months, did the food you bought not last and you didn't have the money to get more?: Never true Within the past 12 months, did you worry whether your food would run out before you got money to buy more?: Never true Do you have trouble paying for medicines?: No Do you have trouble getting transportation to medical appointments?: No Do you have trouble paying your heating and electricity bill?: No Do you have trouble taking care of your child, family member or friend?: No Do you have trouble with day-to-day activities such as bathing, preparing meals, shopping, managing finances, etc.?: No Are you currently unemployed and looking for a job?: No Are you interested in more education?: No Currently or been in a relationship where the following occur: No concerns reported THRIVE Score: 0 AUDIT C Alcohol Use Questionnaire (AUDIT-C) 1. How often do you have a drink containing alcohol?: 2-4 times a month 3. How often do you have six or more drinks on one occasion?: Less than monthly Total Score: 3 JUANCHO-7 AMB Questionnaire JUANCHO-7 Date JUANCHO - 7 assessed: 08/23/24 Feeling nervous, anxious, or on edge: 0 = Not at all Not being able to stop or control worryin = Not at all Worrying too much about different things: 0 = Not at all Trouble relaxin = Not at all Being so restless that it is hard to sit still: 0 = Not at all Becoming easily annoyed or irritable: 0 = Not at all Feeling afraid as if something awful might happen: 0 = Not at all Total JUANCHO-7 score (0-4 normal; 5-9 mild; 10-14 moderate; 15-21 severe): 0 Source: Developed by Drs. Spencer Tirado, Briana Benjamin, Dre Del Valle and colleagues, with an educational emy from [email or web address]. Physical exam (Primary Care) Vital Signs: Last Vital Signs Temp 97.1 F 08/23/24 09:28 Pulse 66 08/23/24 09:28 BP 136/80 08/23/24 09:28 Pulse Ox 99 08/23/24 09:28 Oxygen Delivery Method Room Air 08/23/24 09:28 Care Plan Goal for BP management: BP is stable and in range BMI result Body Mass Index 30.5 BMI Assessment/Plan discussion: High Tobacco/Smoking Status: Tobacco use Status Tobacco use date assessed 08/23/24 08/23/24 09:31 Patient Tobacco Use Status Never used Tobacco 08/23/24 09:31 e-Cigarette/Vaping Use Never Used 08/23/24 09:31 PHQ-9: PHQ-9 Score PHQ-9: Total score 0 08/23/24 09:31 Depression Screening Interpretation: Negative Thrive Assessment: Date of Thrive Assessment Date Thrive assessed 08/23/24 08/23/24 09:31 Currently or been in a relationship where the following occur: No concerns reported Advance Care Planning discussion: Exists, not on file Date of discussion: 08/23/24 Who was present: Patient Forms completed: Health Care Proxy Time spent: 1-15 minutes, on File Actual minutes spent: 5 Coding Level of Care Code New Pt Level 4 (73254) Complex EM visit Add On G2211 Diagnoses Type II diabetes mellitus E11.9 Hypertriglyceridemia E78.1 HTN (hypertension) I10 Hyperlipidemia E78.5 Arthritis M19.90 Psoriasis L40.9 Additional Codes Vital Signs *Quality* - Advance Care Planning discussion: Exists, not on file ([id number]) Vital Signs *Quality* - Time spent: 1-15 minutes, on File ([id number]) Assessment & Plan Assessment & Plan (1) Type II diabetes mellitus: Code(s): E11.9 - Type 2 diabetes mellitus without complications Category: Medical Plan: A1c ordered, will call with results (2) Hypertriglyceridemia: Code(s): E78.1 - Pure hyperglyceridemia Category: Medical Plan: Fasting bw ordered. (3) HTN (hypertension): Code(s): I10 - Essential (primary) hypertension Category: Medical Plan: BP in range, continue meds at same dosage (4) Hyperlipidemia: Code(s): E78.5 - Hyperlipidemia, unspecified Category: Medical Plan: BW ordered (5) Arthritis: Code(s): M19.90 - Unspecified osteoarthritis, unspecified site Category: Medical Plan: Generalized OA. Encouraged to do daily stretching exercises, and using a walking device like a cane to ambulate. (6) Psoriasis: Code(s): L40.9 - Psoriasis, unspecified Category: Medical Plan: Condition is stable. Plan History of Present Illness The patient is an 79-year-old male presenting for a wellness and follow-up visit. He generally feels well, although he experiences morning aches and pains that subside after an hour, particularly when he sleeps on his right side. He details a significant reduction in his walking ability, having difficulty walking even half a mile compared to his previous capability of eight miles daily. He experiences right calf soreness after prolonged walking, worsened by a past neck fracture that has been surgically repaired. He uses a cane for longer distances but otherwise remains mobile. His diabetes is well-controlled, and his arthritis contributes to his overall discomfort but is effectively managed. The patient is independent in his daily activities, including grocery shopping and occasional night driving. Social History - Lives with a significant other, a woman, with whom he has cohabitated for 15 years. - Does not use a cane regularly but carries one for longer distances. - Despite mobility limitations, he participates in grocery shopping using a non- motorized cart. - Manages his own finances and is cognitively intact, handling daily administrative tasks independently. Review of Systems - Musculoskeletal: Reports morning aches and pains, right leg discomfort after prolonged walking. - Neurological: Denies memory issues. - Eyes: Denies halos while driving at night. - General: Reports feeling generally well aside from age-associated discomforts, appetite is too good but sleeps well at night. Physical Exam General: Appearance normal, both eyes and all related structures Nutritional Appearance: Well nourished Orientation/consciousness: Patient oriented x3 Limitations: Patient has difficulty walking long distances; uses a cane for support when walking longer distances Head: Normal to inspection Neck: Normal visual inspection Chest: Normal palpation of entire chest wall Respiratory: Normal respiratory effort Neurology: Patient oriented x3 Results Plan The patient will continue with his current management of type 2 diabetes mellitus, ensuring it remains well-controlled. His reduced mobility due to osteoarthritis will be managed conservatively with a focus on maintaining activity levels and thoughtful use of a cane for longer walks. A six-month follow-up appointment is scheduled to reassess his general health and monitor any changes in his physical activities or health conditions. Routine bloodwork has been ordered and will be followed accordingly. Patient was informed and verbally consented to the use of an ambient scribe for clinic note documentation during this visit. Discussion Notes During the visit, we discussed maintaining the current level of activity, encouraging the use of a cane for walks exceeding short distances to prevent falls and decrease stress on joints. We reviewed the patient's diabetes management, which remains stable, and emphasize adherence to his current medication regimen. The patient was informed about the importance of timely refill requests to prevent medication gaps. Routine bloodwork was ordered, and the patient was informed about the process of getting it completed. A follow-up was scheduled for six months to ensure ongoing monitoring of his health and to reassess any potential changes in his condition. The patient expressed understanding and agreement with the discussed management plan. Patient Instructions - Continue current diabetes medication regimen as prescribed. - Use the cane for long walks to prevent falls. - Place timely requests for medication refills through the pharmacy. - Undergo routine bloodwork as ordered. - Schedule a follow-up appointment in six months. - Report any significant changes in mobility or health immediately. - Maintain a balanced diet and regular physical activity within tolerable limits. Orders: Orders C Reactive Protein Today E11.9 - Type 2 diabetes mellitus without complications, E78.1 - Pure hyperglyceridemia, E78.5 - Hyperlipidemia, unspecified, I10 - Essential (primary) hypertension, L40.9 - Psoriasis, unspecified, M19.90 - Unspecified osteoarthritis, unspecified site UA and rflx microscopic Today E11.9 - Type 2 diabetes mellitus without complications, E78.1 - Pure hyperglyceridemia, E78.5 - Hyperlipidemia, unspecified, I10 - Essential (primary) hypertension, L40.9 - Psoriasis, unspecified, M19.90 - Unspecified osteoarthritis, unspecified site Basic Metabolic Panel Today E11.9 - Type 2 diabetes mellitus without complications, E78.1 - Pure hyperglyceridemia, E78.5 - Hyperlipidemia, unspecified, I10 - Essential (primary) hypertension, L40.9 - Psoriasis, unspecified, M19.90 - Unspecified osteoarthritis, unspecified site Complete Blood Count no Diff Today E11.9 - Type 2 diabetes mellitus without c omplications, E78.1 - Pure hyperglyceridemia, E78.5 - Hyperlipidemia, unspecified, I10 - Essential (primary) hypertension, L40.9 - Psoriasis, unspecified, M19.90 - Unspecified osteoarthritis, unspecified site Lipid Panel Today E11.9 - Type 2 diabetes mellitus without complications, E78.1 - Pure hyperglyceridemia, E78.5 - Hyperlipidemia, unspecified, I10 - Essential (primary) hypertension, L40.9 - Psoriasis, unspecified, M19.90 - Unspecified osteoarthritis, unspecified site Liver Panel Today E11.9 - Type 2 diabetes mellitus without complications, E78.1 - Pure hyperglyceridemia, E78.5 - Hyperlipidemia, unspecified, I10 - Essential (primary) hypertension, L40.9 - Psoriasis, unspecified, M19.90 - Unspecified osteoarthritis, unspecified site Prostate Specific Antigen Scr Today E11.9 - Type 2 diabetes mellitus without complications, E78.1 - Pure hyperglyceridemia, E78.5 - Hyperlipidemia, unspecified, I10 - Essential (primary) hypertension, L40.9 - Psoriasis, unspecified, M19.90 - Unspecified osteoarthritis, unspecified site
[2024-08-23 09:28] VITALS: BP 136/80; PULSE 66; TEMP 36.2; O2SAT 99; BMI 30.5
--- OUTSIDE RECORDS SUMMARY | 2024-08-23 10:33 | XMS_ITS | Patient Health Record ---
Author Organization [facility] Address [address] [place] [address] Care Team Providers Care Wedding Designer Name Role Phone Timoteo Guerrero MD Primary Care Provider Nicholas Lira Jr Unavailable Allergies Allergen (clinical drug ingredient) Drug/Non Drug Allergy documented on EMR Reaction Allergy Type Onset Date Status lisinopril Lisinopril Unknown Drug Allergy Activ e Reason For Referral No Information Medications Medication SIG (Take, Route, Frequency, Duration) Notes Start Date End Date Status Multivitamin Active Pravastatin Sodium 80 MG Orally Once a day Active Aspir-81 Active Tylenol PRN Active glipiZIDE 5 MG Orally Once a day Active metFORMIN HCl 1000 MG Orally twice a day Active Atenolol 25 MG Orally twice a day Active MiraLax (colon prep) 8.3 ounce ((238) grams mixed with Gatorade or Crystal Light orally begin at 5:00 p.m. the day before the procedure for 1 day 08/21/2020 Active Allopurinol 100 MG Orally A ctive Gemfibrozil 600 MG Orally Twice a day Active Immunizations Vaccine Route Administration Date Status Comme nts Influenza Unknown 03/29/2020 Administered Social History Tobacco Use: Social History Observation Description Date Details (start date - stop date) Former Smoker NA - NA Tobacco Use/Smoking Question Answer Notes Patient is a former smoker When did you start smoking? 13 years old When did you stop smoking? 30 years ago How long has it been since you last smoked? > 10 years Alcohol Screen Question Answer Notes Did you have a drink containing alcohol in the p ast year? No Points 0 Interpretation Negative Section Notes: Occasional whiskey or beer Problems Problem Type SNOMED Code ICD Code Onset Dates Problem Status W/U Status Risk Notes Problem 463722063 Colon cancer screening (Z12.11) Active confirmed Problem [id number] tool crib lead (current) use of aspirin (Z79.82) Active confirmed Problem [id number] tool crib lead (current) use of oral hypoglycemic drugs (Z79.84) Active confirmed Plan Of Treatment Future Test Test Name Order Date COLONOSCOPY 08/21/2020 Insurance Providers Payer Name Payer Address Payer Phone Subscriber Number Group Number Insured Name Patient Relationship to Insured Coverage Start Date Coverage End Date MEDICARE OF [place] [address] [place] [address] [id number] KEN MURILLO Self - patient is the insured [employer] CLAIMS [address] [place] [address] [phone] [id number] KEN MURILLO Self - patient is the insured Medical (General) History Medical History History ICD Code type II diabetes hypertriglyceridemia Gout hypertension hyperlipidemia Surgical History Surgery Date(Month/Year) Titanium strap front and back of neck
== END 2024-08-23 09:59 | disposition home or self-care (01) ==
LOC: HO.HMCHD 09:25
PROVIDERS: PCP Internal Medicine; Visit Provider Internal Medicine
DX: E11.69 Type 2 diabetes mellitus with other specified complication (principal); E78.1 Pure hyperglyceridemia; I10 Essential (primary) hypertension; E78.5 Hyperlipidemia, unspecified; M19.90 Unspecified osteoarthritis, unspecified site; L40.9 Psoriasis, unspecified; Z00.00 Encounter for general adult medical examination without abnormal findings

== ENCOUNTER → 2024-08-23 09:24 | Outpatient (BNVA) | payer MEDICARE, SELFPAY | PROVIDERS: PCP Internal Medicine; Visit Provider Internal Medicine | DX: Z13.89 Encounter for screening for other disorder (principal) | CPT/HCPCS: 99202 ==

== ENCOUNTER 2024-08-23 10:02 | Outpatient (REF) | payer MEDICARE, SELFPAY ==
[2024-08-23 13:14] LABS: Hematocrit 39.3 % (42.0-52.0); Hemoglobin 13.2 g/dl (14.0-18.0); Mean Corpuscular HGB Conc 33.6 g/dl (31.0-36.0); Mean Corpuscular Hemoglobin 30.4 pg (27.0-33.0); Mean Corpuscular Volume 90.6 fL (80.0-98.0); Mean Platelet Volume 10.3 fL (9.4-12.4); Platelet Count 190 X10*3/uL (160-400); Red Blood Count 4.34 X10*6/uL (4.60-5.80); Red Cell Distribution Width 12.6 % (11.0-16.0); White Blood Count 4.8 X10*3/uL (4.8-10.8)
[2024-08-23 13:23] LABS: Appearance Urine Clear; Color Urine Yellow; Glucose Urine UA Negative (Negative); Leukocyte Esterase Urine Negative (Negative); Nitrite Urine Negative (Negative); PH 5.5 (5.0-9.0); Specific Gravity - Urine 1.025 (1.005-1.025); Urine Blood Negative (Negative); Urine Ketones Negative (Negative); Urine Protein Trace mg/dL (Neg-Trace)
[2024-08-23 13:34] LABS: Alanine Aminotransferase 30 U/L (0-40); Albumin Level 4.7 g/dL (3.5-5.0); Anion Gap 14 (12-20); Aspartate Amino Transferase 30 U/L (5-37); Bilirubin Direct 0.2 mg/dL (0.0-0.5); Bilirubin Total 0.5 mg/dL (0.0-1.0); Blood Urea Nitrogen 24 mg/dL (9-16); C Reactive Protein 0.59 mg/dL (< or = 0.50); Calcium 9.8 mg/dL (8.4-10.2); Carbon Dioxide 26 mmol/L (22-29); Chloride 105 mmol/L (96-108); Cholesterol 155 mg/dL (<200); Estimated Glomerular Filt Rate > 60; Glucose Random 135 mg/dL (60-115); HDL Cholesterol 26 mg/dL (>40); LDL Cholesterol Calculated 73 mg/dL (<100); Sodium 140 mmol/L (135-145); Total Protein 7.7 g/dL (6.5-8.0); Triglycerides 284 mg/dL (<150)
[2024-08-23 13:49] LABS: Alkaline Phosphatase 34 U/L (39-117)
== END 2024-08-23 10:03 | disposition home or self-care (01) ==
LOC: HO.10HDL 10:02
PROVIDERS: Visit Provider Internal Medicine
DX: Z12.5 Encounter for screening for malignant neoplasm of prostate (principal); E78.1 Pure hyperglyceridemia; E78.5 Hyperlipidemia, unspecified; E11.9 Type 2 diabetes mellitus without complications; M19.90 Unspecified osteoarthritis, unspecified site; L40.9 Psoriasis, unspecified; I10 Essential (primary) hypertension
CPT/HCPCS: 36415; 80048; 80061; 80076; 81003; 84153; 85027; 86140; 99202

== ENCOUNTER 2025-02-07 14:53 | Emergency (ER) | payer OTHER, SELFPAY ==
--- NOTE | ~2025-02-07 | CT_ITS ---
CT/CT cervical spine wo IV con IMPRESSION: There are destructive changes at the endplates of C6-7 and to a lesser degree at T1-T2. While this could be related to advanced degenerative changes, discitis and osteomyelitis is not ruled out. Consider MRI. No fracture line is evident, but bone mineral density is low between C6 and T1 which moderately limits the exam. Extensive severe degenerative changes are noted in the mid and lower cervical spine. Electronically signed by: Tommy Gaviria MD 02/07/2025 05:33 PM EDT
[2025-02-07 14:49] VITALS: BP 168/73; PULSE 81; O2SAT 97
[2025-02-07 14:53] VITALS: BP 168/73; PULSE 81; RESP 18; TEMP 36.5; O2SAT 97; BMI 32.2
--- NOTE | 2025-02-07 15:01 | ECG_ITS ---
Test Reason : CP Blood Pressure : */* mmHG Vent. Rate : 77 BPM Atrial Rate : 77 BPM P-R Int : 184 ms QRS Dur : 84 ms QT Int : 370 ms P-R-T Axes : 19 15 30 degrees QTcB Int : 418 ms Normal sinus rhythm Normal ECG When compared with ECG of 04-May-2011 19:07, MANUAL COMPARISON REQUIRED PREVIOUS ECG IS INCOMPATIBLE Referred By: Mark Smith Electronically Signed By: Mayur Reno
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
[2025-02-07 15:22] LABS: MANUAL DIFF FLAG NO
[2025-02-07 15:25] LABS: Hematocrit 37.6 % (42.0-52.0); Hemoglobin 12.4 g/dl (14.0-18.0); Imm Gran Abs Auto 0.08 X10*3/uL (0.00-0.03); Imm Gran Pct Auto 1.2 % (0.0-0.4); Lymphocytes Absolute Auto 0.6 X10*3/uL (1.2-4.9); Mean Corpuscular HGB Conc 33.0 g/dl (31.0-36.0); Mean Corpuscular Hemoglobin 30.0 pg (27.0-33.0); Mean Corpuscular Volume 91.0 fL (80.0-98.0); NRBC Abs Auto 0.000 X10*3/uL (0.0-0.012); NRBC Pct Auto 0.0 /100WBC (0.0-0.2); Platelet Count 175 X10*3/uL (160-400); Red Blood Count 4.13 X10*6/uL (4.60-5.80); White Blood Count 6.6 X10*3/uL (4.8-10.8)
[2025-02-07 15:42] LABS: Alanine Aminotransferase 24 U/L (0-40); Albumin Level 4.7 g/dL (3.5-5.0); Alkaline Phosphatase 36 U/L (39-117); Anion Gap 14 (12-20); Aspartate Amino Transferase 32 U/L (5-37); Blood Urea Nitrogen 29 mg/dL (9-16); Calcium 10.0 mg/dL (8.4-10.2); Carbon Dioxide 26 mmol/L (22-29); Chloride 105 mmol/L (96-108); Creatinine Clr Calc Pharmacy 54.5; Estimated Glomerular Filt Rate > 60; Potassium 4.7 mmol/L (3.3-5.1); Sodium 140 mmol/L (135-145); Total Protein 7.5 g/dL (6.5-8.0)
[2025-02-07 16:28] VITALS: BP 186/82; PULSE 83; RESP 13; TEMP 36.4; O2SAT 97
[2025-02-07 18:56] VITALS: BP 186/82; PULSE 83; RESP 13; TEMP 36.4; O2SAT 97
== END 2025-02-07 18:56 | disposition home or self-care (01) ==
PROVIDERS: Emergency Provider Emergency Medicine; PCP Internal Medicine
DX: S20.219A Contusion of unspecified front wall of thorax, initial encounter (principal); S50.12XA Contusion of left forearm, initial encounter; E11.9 Type 2 diabetes mellitus without complications; I10 Essential (primary) hypertension; V47.5XXA Car driver injured in collision with fixed or stationary object in traffic accident, initial encounter; Y93.89 Activity, other specified; Y92.410 Unspecified street and highway as the place of occurrence of the external cause; Y99.8 Other external cause status; Z79.899 Other long term (current) drug therapy
CPT/HCPCS: 36415; 70450; 71250; 72125; 80053; 85025; 93005; 99284; 99285

== ENCOUNTER → 2025-02-07 15:01 | Outpatient (BNV) | payer OTHER, SELFPAY | PROVIDERS: Emergency Provider Emergency Medicine; PCP Internal Medicine; Visit Provider Internal Medicine Cardiovascular Disease | DX: R07.2 Precordial pain (principal) | CPT/HCPCS: 93010 ==

== ENCOUNTER → 2025-02-07 15:01 | Outpatient (BNV) | payer OTHER, SELFPAY | PROVIDERS: Emergency Provider Emergency Medicine; PCP Internal Medicine; Visit Provider Radiology Diagnostic Radiology | DX: S20.219A Contusion of unspecified front wall of thorax, initial encounter (principal); R91.8 Other nonspecific abnormal finding of lung field; M50.30 Other cervical disc degeneration, unspecified cervical region; Z04.3 Encounter for examination and observation following other accident | CPT/HCPCS: 70450; 71250; 72125 ==

== ENCOUNTER 2025-02-21 10:31 | Outpatient (REF) | payer MEDICARE, SELFPAY ==
[2025-02-21 14:21] LABS: Alanine Aminotransferase 18 U/L (0-40); Albumin Level 4.9 g/dL (3.5-5.0); Alkaline Phosphatase 40 U/L (39-117); Anion Gap 11 (12-20); Aspartate Amino Transferase 31 U/L (5-37); Blood Urea Nitrogen 29 mg/dL (9-16); Calcium 10.0 mg/dL (8.4-10.2); Carbon Dioxide 30 mmol/L (22-29); Chloride 104 mmol/L (96-108); Cholesterol 155 mg/dL (<200); Estimated Glomerular Filt Rate > 60; HDL Cholesterol 24 mg/dL (>40); Potassium 5.1 mmol/L (3.3-5.1); Sodium 140 mmol/L (135-145); Total Protein 7.6 g/dL (6.5-8.0); Triglycerides 306 mg/dL (<150)
== END 2025-02-21 10:32 | disposition home or self-care (01) ==
LOC: HO.10HDL 10:31
PROVIDERS: Visit Provider Physician Assistant Medical
DX: Z00.00 Encounter for general adult medical examination without abnormal findings (principal); E11.9 Type 2 diabetes mellitus without complications; I10 Essential (primary) hypertension; E78.1 Pure hyperglyceridemia; E78.5 Hyperlipidemia, unspecified
CPT/HCPCS: 36415; 80053; 80061; 82306; 83036; 84443

== ENCOUNTER 2025-04-11 09:13 | Outpatient (AMB) | payer OTHER, MEDICARE, SELFPAY ==
[2025-04-11 09:36] VITALS: BP 158/70; PULSE 70; O2SAT 98; BMI 30.3
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
--- OUTSIDE RECORDS SUMMARY | 2025-04-11 10:14 | XMS_ITS | Patient Health Record ---
Author Organization [facility] Address [address] [place] [address] Care Team Providers Care Machine Crater Name Role Phone Cesar (RETIRED) Timoteo JOHN Primary Care Provide Nicholas Rick Jr Unavailable Allergies Allergen (clinical drug ingredient) Drug/Non Drug Allergy documented on EMR Reaction Allergy Type Onset Date Status lisinopril Lisinopril Unknown Drug Allergy Activ e Reason For Referral No Information Medications Medication SIG (Take, Route, Frequency, Duration) Notes Start Date End Date Status Multivitamin Active Pravastatin Sodium 80 MG Tablet Orally Once a day Active Aspir-81 Active Tylenol PRN Active glipiZIDE 5 MG Tablet Orally Once a day Active metFORMIN HCl 1000 MG Tablet Orally twice a day Active Atenolol 25 MG Tablet Orally twice a day Active MiraLax (colon prep) 8.3 ounce ((238) grams mixed with Gatorade or Crystal Light orally begin at 5:00 p.m. the day before the procedure; Duration: 1 day 08/21/2020 Active Allopurinol 100 MG Tablet Orally Active Gemfibrozil 600 MG Tablet Orally Twice a day Active Immunizations Vaccine Route Administration Date Status Comme nts Influenza Unknown 03/29/2020 Administered Social History Tobacco Use: Social History Observation Description Date Details (start date - stop date) Former Smoker NA - NA Social History Drugs/Alcohol: Social Info Question Answer Notes Alcohol Screen Did you have a drink containing alcohol in the past year? No Points 0 Interpretation Negative Tobacco Use: Social Info Question Answer Notes Tobacco Use/Smoking Patient is a former smoker When did you start smoking? 13 years old When did you stop smoking? 30 years ago How long has it been since you last smoked? 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 drugs (Z79.84) Active confirmed Plan Of Treatment Future Test Test Name Order Date COLONOSCOPY 08/21/2020 Insurance Providers Payer Name Payer Address Payer Phone Subscriber Number Group Number Insured Name Patient Relationship to Insured Coverage Start Date Coverage End Date MEDICARE OF [place] [address] [place] [id number] KEN MURILLO Self - patient is the insured [employer] ATT[employer] CLAIMS [address] [place] [phone] [id number] KEN MURILLO Self - patient is the insured Medical (General) History Medical History History ICD Code type II diabetes hypertriglyceridemia Gout hypertension hyperlipidemia Surgical History Surgery Date(Month/Year) Titanium strap front and back of neck
== END 2025-04-11 10:28 | disposition home or self-care (01) ==
PROVIDERS: PCP Physician Assistant Medical; Visit Provider Nurse Practitioner Family
DX: M54.2 Cervicalgia (principal)

== ENCOUNTER 2025-04-29 08:46 | Outpatient (REF) | payer MEDICARE, SELFPAY ==
--- NOTE | ~2025-04-29 | CT_ITS ---
EXAMINATION: CT ABDOMEN WITHOUT THEN WITH IV CONTRAST HISTORY: N28.89 - Other specified disorders of kidney and ureter COMPARISON: Correlation is made with the unenhanced upper abdominal images from a chest CT dated 02/07/2025. TECHNIQUE: CT scan of the abdomen was performed before and after the intravenous administration of 85 mL Omnipaque 350. Coronal and sagittal reformatted images were generated and reviewed. Oral contrast material was not administered per department protocol. This CT exam was performed with one or more of the following dose reduction techniques: automated exposure control, adjustment of the mA and/or kV according to patient size, use of iterative reconstruction technique. DLP: 455 mGy-cm ABDOMEN: LOWER CHEST: The visualized lung bases are clear. There is no pleural effusion. CARDIOVASCULATURE: The heart is normal in size. There is no pericardial effusion. LIVER: The liver is normal in size and contour. No liver mass is identified. The hepatic and portal veins are patent. GALLBLADDER / BILE DUCTS: The gallbladder is unremarkable. There is no intra or extrahepatic biliary ductal dilatation. SPLEEN: The spleen is normal in size. No focal splenic lesion is identified. PANCREAS: The pancreas is unremarkable in appearance. ADRENAL GLANDS: Within normal limits. KIDNEYS/RETROPERITONEUM: No renal calculi are identified. There is no hydronephrosis. There is a 1.6 cm cyst at the upper pole of the right kidney. There is a 1.3 cm hyperdense lesion in the interpolar region of the right kidney measuring 58.7 HU in density on the unenhanced examination and 59.0 HU on the postcontrast study. Findings are compatible with a proteinaceous or hemorrhagic cyst. There is a 1.7 cm cyst in the interpolar region of the left kidney. Smaller cysts are noted at the lower pole of the [. LYMPH NODES: No abdominal or pelvic lymphadenopathy. VASCULATURE: The abdominal aorta demonstrates atherosclerotic calcification, but is normal in caliber. MESENTERY/PERITONEUM: No free fluid. No masses. There is no free intraperitoneal gas. STOMACH: The stomach is collapsed, limiting evaluation. 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 COLON: The visualized portion of the colon is unremarkable. BONES / SOFT TISSUES: No suspicious bony or soft tissue abnormalities. CT/CT abdomen wo/w IV con IMPRESSION: 1.3 cm hemorrhagic versus proteinaceous cyst in the interpolar region of the right kidney. Additional bilateral simple renal cysts as described. Electronically signed by: Spencer Epps MD 04/29/2025 09:36 AM EST
[2025-04-29 15:19] LABS: Creatinine POC 1.0 mg/dL (0.5-1.4); GFR POC > 60
== END 2025-04-29 08:47 | disposition home or self-care (01) ==
LOC: HO.CT 08:46
PROVIDERS: PCP Physician Assistant Medical; Visit Provider Physician Assistant Medical
DX: N28.89 Other specified disorders of kidney and ureter (principal)
CPT/HCPCS: 74170; 82565

== ENCOUNTER → 2025-04-29 08:49 | Outpatient (BNV) | payer MEDICARE, SELFPAY | PROVIDERS: PCP Physician Assistant Medical; Visit Provider Radiology Diagnostic Radiology | DX: N28.1 Cyst of kidney, acquired (principal) | CPT/HCPCS: 74170 ==

== ENCOUNTER 2025-05-03 15:13 | Outpatient (AMB) | payer OTHER, MEDICARE, SELFPAY ==
[2025-05-03 15:17] VITALS: BP 138/86; PULSE 71; TEMP 36.6; O2SAT 99; BMI 30.3
--- NOTE | 2025-05-03 15:17 | A.OFFPC_ITS ---
Vital Signs 05/03/25 15:17 Height 5 ft 6 in Weight 188 lb BMI 30.3 BP 138/86 Blood Pressure Location Rt brachial Position Sitting Pulse 71 Pulse Source Pulse Oximeter Temp 97.8 F Temp Source Temporal Artery Scan Pulse Oximetry (%) 99 Oxygen Delivery Method Room Air Intake Visit Reasons: Discuss pain management Student Services Advisor Required: No Accompanied by: Self / Same As Patient Allergies lisinopril (LISINOPRIL) Allergy (Severe, Verified 05/03/25 15:18) ANGIOEDEMA Medication List - Last Reconciled 05/03/25 by NICKY Bowers allopurinol 1 tab PO DAILY aspirin 81 mg PO DAILY atenolol 1 tab PO BID clobetasol 0.05% 1 appl topical BID cyclobenzaprine 5 mg PO BEDTIME fenofibrate 160 mg PO DAILY glipizide 5 mg PO BID 60 days losartan 50 mg PO DAILY 60 days metformin 1 tab PO BID multivitamin 1 tab PO DAILY naproxen 500 mg PO BID PRN pravastatin 1 tab PO BEDTIME Tobacco use date assessed: 05/03/25 Fall risk assessment: No Falls in past year Last assessed Fall Risk: 05/03/25 Dental Screening Dental Screen Date: 05/03/25 Did you have a dental visit in the last 12 months?: Yes Did you have a dental problem in the last 6 months where you did not have access to dental care?: No HPI HPI Comments History of Present Illness Details History of Present Illness The patient is an 80 year old male with DM, HTN, HLD, arthritis, psoriasis, anemia and gout presenting with a follow-up for bilateral shoulder arthritis following a recent urgent care visit. He reports the onset of bilateral shoulder pain began after an accident and has been experiencing severe pain radiating down his arms. The pain is particularly severe in the morning, making it difficult to get out of bed without assistance, and also causes trouble with activities such as putting on a coat. He also notes associated muscle tightness in his neck. During his recent urgent care visit, the patient was prescribed a short course of prednisone, which he states provided almost 100% pain relief. He reports that 500 mg of Aleve, taken once a day, did not work well for him and caused sleepiness. He has tried various creams with some benefit and finds that heat helps alleviate the pain. He has not had any physical therapy since the accident. The patient also has a history of psoriasis, with patches on his arm and above his ankle, which have significantly improved with clobetasol cream applied twice daily. A recent CT scan revealed benign cysts on his kidney, which were non- concerning. Medical History: - Arthritis, post-traumatic - Psoriasis - Benign renal cyst Medications: - Prednisone (short course, recent) - Clobetasol cream for psoriasis - Aleve 500 mg once daily (discontinued due to ineffectiveness and sleepiness) Health Maintenance - Follow-up appointment scheduled for [place] to monitor progress. Social History - Functional Status: Experiences difficu lty with activities of daily living in the morning, such as getting out of bed without help and putting on a jacket or shirt. Results - CT Scan: Revealed benign cysts on the kidney; no concerning findings. Patient was informed and verbally consented to the use of an ambient scribe for clinic note documentation during this visit. COUNTS INCLUDE 234 BEDS AT THE [facility] Medical History (Updated 05/08/25 @ 23:41 by NICKY Bowers) Arthritis Bilateral shoulder pain Cervical vertebral fracture Cervicalgia Gout HTN (hypertension) Hyperlipidemia Hypertriglyceridemia Obesity (BMI 30.0-34.9) Psoriasis Pulmonary nodule Renal cyst Right renal mass Type II diabetes mellitus Surgical History History of bilateral carpal tunnel release History of nasal surgery History of neck surgery Hx of colonoscopy (~09/08/20) Family History Mother Cancer Father No problems noted. Social History Housing: House Are you a primary youth care worker to a significant other at home: No Do you presently have visiting nurse or other home services: No Patient Tobacco Use Status: Former Tobacco user e-Cigarette/Vaping Use: Former Use service: No Current occupational status: retired Cognitive needs: No Hearing needs: No Vision needs: Yes (reading glasses) Questionnaire PHQ-9 Over the last 2 weeks, how often have you been bothered by any of the following problems? 1. Little interest or pleasure in doing things: not at all 2. Feeling down, depressed, or hopeless: not at all 3. Trouble falling or staying asleep, or sleeping too much: not at all 4. Feeling tired or having little energy: not at all 5. Poor appetite or overeating: not at all 6. Feeling bad about yourself - or that you are a failure or have let yourself or your family down: not at all 7. Trouble concentrating on things, such as reading the newspaper or watching television: not at all 8. Moving or speaking so slowly that other people could have noticed. Or the opposite - being so fidgety or restless that you have been moving around a lot more than usual: not at all 9. Thoughts that you would be better off or of hurting yourself in some way: not at all Total score: 0 Depression Screening Interpretation: Negative Depression Screening Done: Yes Source: Developed by Drs. Spencer Tirado, Briana Benjamin, Dre Del Valle and colleagues, with an educational emy from [employer]. Thrive Questionnaire Date Thrive assessed: 05/03/25 I am a: Patient Within the past 12 months, did the food you bought not last and you didn't have the money to get more?: Never true Within the past 12 months, did you worry whether your food would run out before you got money to buy more?: Never true Do you have trouble paying for medicines?: No Do you have trouble getting transportation to medical appointments?: No Do you have trouble paying your heating and electricity bill?: No Do you have trouble taking care of your child, family member or friend?: No Do you have trouble with day-to-day activities such as bathing, preparing meals, shopping, managing finances, etc.?: No Are you currently unemployed and looking for a job?: No Are you interested in more education?: No THRIVE Score: 0 AUDIT C Alcohol Use Questionnaire (AUDIT-C) 1. How often do you have a drink containing alcohol?: Never 3. How often do you have six or more drinks on one occasion?: Never Total Score: 0 JUANCHO-7 AMB Questionnaire JUANCHO-7 Date JUANCHO - 7 assessed: 05/03/25 Feeling nervous, anxious, or on edge: 0 = Not at all Not being able to stop or control worryin = Not at all Worrying too much about different things: 0 = Not at all Trouble relaxin = Not at all Being so restless that it is hard to sit still: 0 = Not at all Becoming easily annoyed or irritable: 0 = Not at all Feeling afraid as if something awful might happen: 0 = Not at all Total JUANCHO-7 score (0-4 normal; 5-9 mild; 10-14 moderate; 15-21 severe): 0 Source: Developed by Drs. Spencer Tirado, Briana Benjamin, Dre Del Valle and colleagues, with an educational emy from [employer]. Review of Systems Narrative Review of Systems - Musculoskeletal: Reports severe, tolerable pain and muscle tightness in both shoulders since an accident, radiating down the arms. - Neurological: Reports pain radiating up into his neck. - Integumentary: Reports psoriasis patches on his arm and above his ankle, which are improving with cream. - General: Denies pain with palpation on the shoulders. Physical exam (Primary Care) Vital Signs: Last Vital Signs Temp 97.8 F 05/03/25 15:17 Pulse 71 05/03/25 15:17 BP 138/86 05/03/25 15:17 Pulse Ox 99 05/03/25 15:17 Oxygen Delivery Method Room Air 05/03/25 15:17 BMI result Body Mass Index 30.3 GENERAL Well developed, obese, in no apparent distress HEENT Head-Normocephalic Eyes- PERRLA, EOMI, Conjuctiva clear, lids WNL Ears- Canals clear, TMs WNL Mouth/Throat-No lesions, no erythema, no exudate Neck- Supple, No lymphadenopathy, thyroid WNL RESPIRATORY Normal I:E, Clear to auscultation CARDIOVASCULAR Regular, rate and rhythm, No murmurs or rubs GASTROINTESTINAL Soft, nontender, normal bowel sounds, no masses MUSCULOSKELETAL Back- nontender Joints- no swelling or deformity SKIN maculopapualr scaly lesions on arms and legs- improved. NEUROLOGICAL Gait normal PSYCHIATRIC Oriented to person, place and time Mood and affect WNL Appearance WNL Speech WNL Thought processes WNL Tobacco/Smoking Status: Tobacco use Status Tobacco use date assessed 05/03/25 05/03/25 15:25 Patient Tobacco Use Status Former Tobacco user 05/03/25 15:17 e-Cigarette/Vaping Use Former Use 05/03/25 15:17 PHQ-9: PHQ-9 Score PHQ-9: Total score 0 05/03/25 15:25 Depression Screening Interpretation: Negative Thrive Assessment: Date of Thrive Assessment Date Thrive assessed 05/03/25 05/03/25 15:25 Narrative Physical Exam - Musculoskeletal: No tenderness to palpation of bilateral shoulders. - Integumentary: Significant improvement of psoriatic patches on arms and ankle; areas were previously scaly. - Neck: Noted to have tight posterior neck muscles. Coding Level of Care Code Established Pt Est Pt Level 4 (71639) Established Pt Add On Problem Visit Only Patient Type Established Diagnoses Cervicalgia M54.2 Primary hypertension I10 Hypertension type: primary hypertension Bilateral shoulder pain M25.511; M25.512 Psoriasis L40.9 Renal cyst N28.1 Time Spent (min) 35 Comment Time spent on chart review, H&P, Patient education and orders. Assessment & Plan Assessment & Plan (1) Cervicalgia: Code(s): M54.2 - Cervicalgia Category: Medical (2) HTN (hypertension): Comment: BP today was 138/86 Code(s): I10 - Essential (primary) hypertension Category: Medical Qualifiers: Hypertension type: primary hypertension Qualified Code(s): I10 - Essential (primary) hypertension (3) Bilateral shoulder pain: Code(s): M25.511 - Pain in right shoulder; M25.512 - Pain in left shoulder Category: Medical (4) Psoriasis: Code(s): L40.9 - Psoriasis, unspecified Category: Medical (5) Renal cyst: Code(s): N28.1 - Cyst of kidney, acquired Category: Medical Plan Plan Patient was informed and verbally consented to the use of an ambient scribe for clinic note documentation during this visit. 1. Bilateral Shoulder Arthritis The patient presents with significant bilateral shoulder pain, post-traumatic in nature, which is worst in the mornings and limits his activities of daily living. He had an excellent response to a short course of prednisone. A referral will be placed for physical therapy to improve mobility and function. He will be started on gabapentin at bedtime for chronic pain and tizanidine, a muscle relaxer, to be taken at night to help with muscle tightness. He is advised he can take an additional dose of tizanidine in the morning on particularly bad days, but should be cautious of drowsiness. Use of heat is also recommended for symptomatic relief. The patient will follow-up in May to assess response to treatment. 2. Psoriasis The patient's psoriasis has shown significant improvement with the use of clobetasol cream. He is advised to reduce the application to once daily, and then every other day, monitoring for any flare-ups. A refill for clobetasol cream will be sent to his pharmacy. 3. Benign Renal Cyst The patient's recent CT scan showed benign cysts on his kidney. He was reassured that these findings are not concerning and require no further action. Discussion Notes I discussed with the patient his post-accident bilateral shoulder arthritis and associated chronic pain. I explained that while his response to prednisone was positive, it is only a temporary solution. I recommended initiating gabapentin for nerve-related pain, explaining that it works by slowing down nerve signals to the brain and is dosed at night due to potential drowsiness. I also suggested a muscle relaxer, tizanidine, which has less sedative effect than Flexeril, to address his muscle tightness, and we discussed a dosing schedule to minimize daytime drowsiness. We discussed the benefits of physical therapy, and the patient agreed to a referral, noting that they could teach him home exercises after an initial evaluation. Regarding his psoriasis, I praised the improvement from the clobetasol cream and advised a tapering schedule to find the minimum effective dose. I also reviewed his recent CT scan results, reassuring him that the kidney cysts are benign and require no further workup. We agreed to keep his follow-up appointment in May to assess his progress. Patient Instructions - I have sent new prescriptions for gabapentin and tizanidine to your pharmacy at [facility], along with a refill for your clobetasol cream. - Take the gabapentin at bedtime as it can cause drowsiness. - Take the tizanidine (muscle relaxer) at night, about two hours before bed. - You may take an extra tizanidine in the morning on very painful days, but be careful as it may cause drowsiness. - You can use heat on your shoulders to help with the pain. - For your psoriasis, reduce using the clobetasol cream to once a day. If it remains controlled, try using it every other day. If the rash flares up, you can go back to using it twice a day. - Someone will call you to schedule a physical therapy appointment. - Keep your follow-up appointment scheduled for early May. Orders: Orders PT Evaluation and Treatment 05/03/25 M25.511 - Pain in right shoulder, M25.512 - Pain in left shoulder, M54.2 - Cervicalgia Medications: New aspirin 81 mg PO DAILY 90 tabs 3RF fenofibrate 160 mg PO DAILY 90 tabs 3RF gabapentin 100 mg PO BEDTIME 30 caps 0RF for chronic pain tizanidine two hours before bed 2 mg PO BEDTIME PRN 30 tabs 0RF muscle spasticity Changed From metformin 1 tab PO BID To metformin 1,000 mg PO BID 180 tabs 1RF From pravastatin 1 tab PO BEDTIME To pravastatin 80 mg PO BEDTIME 90 tabs 1RF From naproxen 500 mg PO BID 20 tabs 0RF M54.2 - Cervicalgia To naproxen 500 mg PO BID PRN M54.2 - Cervicalgia From allopurinol 1 tab PO DAILY To allopurinol 100 mg PO DAILY 90 tabs 2RF for gout From atenolol 1 tab PO BID To atenolol 50 mg PO BID 180 tabs 1RF From losartan 50 mg PO DAILY 60 days 60 tabs 0RF To losartan 50 mg PO DAILY 90 tabs 1RF Refilled clobetasol 0.05% 1 appl topical BID 60 grams 2RF for psoriasis glipizide 5 mg PO BID 180 tabs 1RF 60 days
--- OUTSIDE RECORDS SUMMARY | 2025-05-03 19:29 | XMS_ITS | Patient Health Record ---
Author Organization [facility] Address [address] [place] [address] Care Team Providers Care Banking Supervisor Name Role Phone Cesar (RETIRED) Timoteo JOHN [...] Status Risk Notes Problem Colon cancer screening (736355299) Colon cancer screening (Z12.11) Active confirmed Problem Long-term current use of antiplatelet drug ([id number] ) [facility] (current) use of aspirin (Z79.82) Active confirmed Problem Long-term current use of drug therapy ([id number]) superintendent terminal (current) use of oral hypoglycemic drugs (Z79.84) Active confirmed Plan Of Treatment Future Test Test Name Order Date COLONOSCOPY 08/21/2020 Insurance Providers Payer Name Payer Address Payer Phone Subscriber Number Group Number Insured Name Patient Relationship to Insured Coverage Start Date Coverage End Date MEDICARE OF [place] [address] [place] [id number] KEN MURILLO Self - patient is the insured [employer] ATT[employer] CLAIMS [address] [place] [address] [id number] KEN MURILLO Self - patient is the insured Medical (General) History Medical History History ICD Code type II diabetes hypertriglyceridemia Gout hypertension hyperlipidemia Surgical History Surgery Date(Month/Year) Titanium strap front and back of neck
== END 2025-05-03 15:59 | disposition home or self-care (01) ==
LOC: HO.HMCHD 15:14
PROVIDERS: PCP Physician Assistant Medical; Visit Provider Physician Assistant Medical
DX: M54.2 Cervicalgia (principal); I10 Essential (primary) hypertension; M25.511 Pain in right shoulder; M25.512 Pain in left shoulder; L40.9 Psoriasis, unspecified; N28.1 Cyst of kidney, acquired